=== PATIENT | female | born 1990 | race Caucasian/White ===

== ENCOUNTER 2018-06-18 16:00 | Inpatient (IN) ==
[2018-06-18] MEDS ORDERED: Famotidine 20 MG/2 ML VIAL IVP PRN (16:33)
[2018-06-18] MEDS ORDERED: Ondansetron 4 MG/2 ML VIAL IVP PRN (16:33)
[2018-06-18] MEDS ORDERED: *HR* Nalbuphine 10 MG/ML AMPUL IVP PRN (16:33)
[2018-06-18] MEDS ORDERED: Naloxone 0.4 MG/ML INJ IVP PRN (16:33)
[2018-06-18] MEDS ORDERED: miSOPROStol 25 MCG TABLET PO ONE (16:35)
[2018-06-18] MEDS ORDERED: Ringers Solution, Lactated 1,000 ML IVC SCH (16:45)
[2018-06-18] MEDS ORDERED: EPHEDrine 50 MG/ML VIAL IVP PRN (17:22)
[2018-06-18] MEDS ORDERED: Epidural Premix (fent/bupiv) 110 ML EP SCH (17:30)
[2018-06-18 17:45] LABS: Basophils % 0.2 %; Eosinophils % 0.1 %; Hematocrit 38.2 % (35.3-44.9); Hemoglobin 12.6 g/dL (11.5-15.4); Immature Granulocytes % 0.4 % (0-4); Lymphocytes # 2.1 K/mcL (0.6-4.6); Lymphocytes % 25.7 %; Mean Corpuscular Hemoglobin 30.2 pg (28.0-33.3); Mean Corpuscular Volume 91.6 fL (83.0-100.0); Mean Platelet Volume 10.2 fL (9.4-12.4); Monocytes # 0.7 K/mcL (0.0-1.3); Monocytes % 8.3 %; Neutrophils # 5.2 K/mcL (1.6-8.9); Platelet Count 179 K/mcL (140-400); Red Blood Count 4.17 M/mcL (3.82-4.97); Red Cell Distribution Width 13.1 % (11.5-14.5); Segmented Neutrophils % 65.3 %
[2018-06-18 17:59] LABS: Amphetamine Screen,Urine Negative ng/mL (Cutoff=1000); Barbiturate Screen,Urine Negative ng/mL (Cutoff=200); Benzodiazepines Screen,Urine Negative ng/mL (Cutoff=200); Cannabinoid Screen,Urine Negative ng/mL (Cutoff = 50); Cocaine Screen,Urine Negative ng/mL (Cutoff= 300); Opiate Screen,Urine Negative ng/mL (Cutoff=300); Phencyclidine Screen,Urine Negative ng/mL (Cutoff=25)
--- NOTE | 2018-06-18 18:49 | OB/GYN History & Physical ---
Date of Encounter: 06/18/18 Time of Encounter: 18:41 Assessment and Plan (1) 39 weeks gestation of Current visit: Yes Status: Acute Patient admitted for IOL PO Cytotec 50mcg x1 Dr. Cortez updated on patient's POC History of Present Illness Chief complaint: Scheduled IOL HPI: Ms. Bhatti is a 28 year old female at 40w6d with EDC of 06/12/2018 presents to labor and delivery for IOL for gestational age greater than 39 weeks. IOL was discussed with Dr. Lucero who agrees with POC. Sousa score 9. Patient reports good movement denies contractions LOF or VB. Patient receives OB care with [facility]. Patient's care has been uncomplicated. Ultrasound on 06/15/18 EFW 7#1oz and GREGOR 11.9cm. Blood type: A+ Rubella: Immune Hep B: drawn on admission and pending Varicella: Positive GBS: Negative Past Med Surg Social Fam HX - Past Medical History Source: patient Medical history: no medical history Psychiatric history: no psych history - Past Surgical History Surgical History: no surgical history - Social History Smoking Status: Former smoker Alcohol use: none Drug use: none Current living situation: Home - Independent Activity Level: Independent ambulation Recent Out of Country Travel Within the Last 8 Weeks: No Exposure or Possible Exposure to Illness During Travel: No - Family History Mother Name: Gennaroantha Age: 47 Hx Family Medical Disorders: No Obstetrical History - Pregnancies : 2 Para: 1 Term: 1 : 0 Ab's: 0 Livin Medications and Allergies Vits96/Iron Fum/Folic [ Tablet] 1 each PO 06/18/18 [History] Allergy/AdvReac Type Severity Reaction Status Date / Time No Known Allergies Allergy Verified 06/18/18 18:02 Review of System OB - Constitutional Constitutional ROS IM: no chills, no fever(s), no headache(s), no weakness - Cardiovascular Cardiovascular: no chest pain, no leg edema, no lightheadedness, no palpitations, no syncope - Respiratory Respiratory: no cough, no dyspnea - Gastrointestinal Gastrointestinal: no abdominal pain, no cramping, no diarrhea, no heartburn, no nausea, no vomiting - Genitourinary Genitourinary: no abnormal vaginal bleeding, no difficulty urinating, no difficulty voiding, no dysuria, no flank pain, no urinary frequency, no urinary hesitancy, no urinary urgency, no vaginal discharge, no vaginal odor, no vaginal pruritis Exam - Constitutional Constitutional: well developed, well nourished, no acute distress, average body habitus - HEENT HEENT: Normocephaly, Mucus Membranes Moist - Neck Neck exam: full ROM, supple - Lungs Respiratory exam: CTAB - Cardiovascular Cardiovascular exam: RRR, +S1, +S2 - Abdomen Abdomen: Present: bowel sounds normal, gravid, non tender - Extremities Extremities exam: full ROM, normal capillary refill, normal inspection Deep Tendon Reflex Grade: 2+ Normal - Cervix Dilation: 1 Effacement: 70 Station: -1 - Uterus Uterus exam: Present: normal size, normal contour - Anus/Rectum Anus/Rectum: Present: normal perianal skin - Comments Comments: FHR 125 bpm moderate variability +15x15 accels no decels noted. CAt. 1 tracing. No contractions noted. Results Result Diagrams: 06/18/18 17:27 All other labs normal. - VTE Reasons for not Prescribing Prophylaxis: Treatment not Indicated - Low risk for VTE
--- NOTE | 2018-06-18 18:54 | Anesthesia Evaluation PreOp ---
Date of Encounter: 06/18/18 Time of Encounter: 18:51 - Past History Planned Operation: vaginal del, induction 39wks Cardiac History: Denies any Significant Hx Pulmonary History: Denies Any Significant HX CLEANER TOUCH UP WORKER History: Denies Any Significant HX Other Medical History: Denies Any Significant HX Anesthesia History: No Prior Anesthetic Complications, Past Anesthesia (no family hx.) Alcohol Use: none Drug use: none Medications and Allergies Vits96/Iron Fum/Folic [ Tablet] 1 each PO 06/18/18 [History] Allergy/AdvReac Type Severity Reaction Status Date / Time No Known Allergies Allergy Verified 06/18/18 18:02 Anesthesia Results - Labs 06/18/18 17:27 Anesthesia Exam - HEENT Pupil (Motor): Pupils equal Mallampati: II Teeth: Normal Oral Opening: Greater than 3 - CLEANER TOUCH UP WORKER LOC: Oriented CLEANER TOUCH UP WORKER Motor: Normal RUE, Normal LUE, Normal RLE, Normal LLE, Normal Face CLEANER TOUCH UP WORKER Sensory: Normal: RUE, LUE, RLE, LLE, Face - Cardiac Rhythm: Regular Murmur: None - Pulmonary Breath Sounds: bilateral Clear Respiratory Effort: Symmetrical Anesthesia Assess/Plan ASA Score: 2 Level of consciousness: Cooperative, Oriented Anesthetic Plan: General, Spinal, Epidural Monitoring Plan: Standard Monitors Recovery Plan: PACU
--- NOTE | 2018-06-18 21:19 | OB Labor Progress Note ---
Date of Encounter: 06/18/18 Time of Encounter: 21:16 Labor Progress Note - Subjective Subjective: Patient resting in bed. Discussed POC with patient. Patietn denies any questions or concerns. - Cervix Cervix: 1/70/-1 - Heart Tones Heart Tones: 135 bpm moderate variability +15x15 accels no decels noted. Cat. 1 tracing - [place]: irregular - Interventions Interventions: SVE, Dailey catheter placed without difficulty. 40cc sterile water placed in dailey catheter. Patient tolerated well. - Plan Plan: Continue labor management Dr. Cortez updated on POC
[2018-06-18] MEDS ORDERED: Oxytocin 20 units/ LR 1000 mL 20 UNIT/1,000 ML BAG IVC SCH (22:45)
--- NOTE | 2018-06-19 00:13 | OB Labor Progress Note ---
Date of Encounter: 06/19/18 Time of Encounter: 00:10 Labor Progress Note - Subjective Subjective: Patient reports contractions are getting stronger. Discussed POC with patient. Patient denies any questions or concerns. - Cervix Cervix: 4.5/70/-1 - Heart Tones Heart Tones: 125 bpm moderate variability +15x15 accels no decels noted. Cat. 1 tracing - [place]: 4-5 min apart - Interventions Interventions: SVE, AROM moderate amount of light meconium noted. Patient tolerated well. Nursery and Dr. Cortez updated on patient's status. - Plan Plan: Continue labor management Patient may have nubain or epidural if desires anticipate
[2018-06-19] MEDS ORDERED: Lidocaine -MPF 2% 5 ML VIAL ONE (00:19)
--- NOTE | 2018-06-19 00:51 | Anesthesia Procedures ---
Date of Encounter: 06/19/18 Time of Encounter: 00:21
--- NOTE | 2018-06-19 00:53 | Anesthesia Procedures ---
Addendum entered and electronically signed by Pam Angel CRNA 06/19/18 18:34: Infant Delivery Date: 06/19/18 Infant Delivery Time: 14:15 Original Note: Date of Encounter: 06/19/18 Time of Encounter: 00:21 Procedures: Anesthesia - Epidural/Spinal Patient ID/Chart reviewed: Yes Patient examined: Yes OB Eval: Gestational age: term OB Eval: : 2 OB Eval: Hx Para: 1 OB Eval: Contractions: Non-stressed pattern Consent Obtained: Yes Supplemental Oxygen: None/Room Air Site Prep: Aseptic Technique, Sterile prep and drape, 0.5% Chlorhexidine/Alcohol Patient position: upright Local Anesthetic: Lidocaine 1% Amount of Local Anesthetic used: 2 Touhy Needle Gauge: 18 Touhy Needle Depth (cm): 5 Catheter Depth at Skin (cm): 10 Test Dose (1.5% Lido + Epi): Volume given (mls): 3 Test Dose Result: Negative Loading Dose: Other: 10ml from solution Loading Dose Administered: Thru Catheter Infusion Med: 0.125% Bupivacaine w/ 2 mcg/ml Fentanyl Infusion Rate (mls/hr): [address]: Tegaderm, Tape Interspace Used: L3-L4 Loss of Resistance (ELAYNE): Yes (saline) Blood: No CSF: No Paresthesia: No Procedure: vss though out procedure, FHR stable per RN's
--- NOTE | 2018-06-19 02:06 | OB Labor Progress Note ---
Date of Encounter: 06/19/18 Time of Encounter: 02:04 Labor Progress Note - Subjective Subjective: Patient comfortable with epidural in place. Patient denies any needs at this time. - Cervix Cervix: 5/80/-1 - Heart Tones Heart Tones: 115 bpm moderate variability +15x15 accels no decels noted. Cat. 1 tracing - [place]: 3-4 min apart - Interventions Interventions: SVE, IUPC placed without difficulty. Patient tolerated well. - Plan Plan: Continue labor management anticipate
[2018-06-19] MEDS ORDERED: 0.9 % Sodium Chloride 1,000 ML ONE (06:16)
--- NOTE | 2018-06-19 06:47 | OB Labor Progress Note ---
Date of Encounter: 06/19/18 Time of Encounter: 06:40 Labor Progress Note - Subjective Subjective: Patient comfortable with epidural in place. - Cervix Cervix: 5.5/90/-1 - Heart Tones Heart Tones: 115 bpm moderate variability +15x15 accels early decels noted. - [place]: 3-4 min apart - Interventions Interventions: Updated on interventions per RN. This CNM was at another patient's bedside at this time. Amnio-infusion infusing at this time. - Plan Plan: Continue labor management. Dr. Cortez aware of EFM tracing and interventions.
--- NOTE | 2018-06-19 10:29 | OB Labor Progress Note ---
Date of Encounter: 06/19/18 Time of Encounter: 10:24 Labor Progress Note - Subjective Subjective: Patient comfortable with epidural - feeling more pressure and requesting redose on epidural medication - Cervix Cervix: 8/90/-1 - Heart Tones Heart Tones: Baseline 120 Moderate variability Early decelerations Accelerations present 15x15 FHR Category I - [place]: Contractions every 3+ minutes - Interventions Interventions: SVE Peanut ball right Anesthesia notified of need for bolus - Plan Plan: Continue active management Frequent changes with peanut ball Re-evaluate in 2 hours Anticipate
[2018-06-19] MEDS ORDERED: *HR* FentaNYL (PF) 100 MCG/2 ML VIAL ONE (11:50)
[2018-06-19] MEDS ORDERED: Bupivacaine-MPF 0.25% 10 ML VIAL ONE (11:51)
--- NOTE | 2018-06-19 13:45 | Anesthesia Progress Note ---
Date of Encounter: 06/19/18 Time of Encounter: 13:33 Anesthesia Note - Note Note: 06/19/18 13:43 called to LDR 9 for c/o return of pain with contractions 05/13. epidural working, no migration. Dosed with 100mcg fentanyl and 8ml 0.25% bupivacaine in 3 divided doses with VSS and fhts stable throughout.
--- NOTE | 2018-06-19 14:43 | OB/GYN Procedure Note ---
Delivery - Delivery Date: 06/19/18 Provider: Merly Solano Intrapartum events: meconium Delivery induction: misoprostol Delivery augmentation: rupture of membranes, pitocin Delivery monitor: external FHT, external uterine, internal uterine Anesthesia: epidural Quantitated Blood Loss: 250 - (s) Infant A Infant Delivery Date: 06/19/18 Infant Delivery Time: 14:15 Presentation: vertex Position: LURDES Route of delivery: Gender: Female Viability: Viable Pounds: 6 Ounces: 12 Weight Gram: 3.065 kg at 1 minute: 4 at 5 mins: 6 at 10 mins: 7 Shoulder Dystocia: not encountered Specimens collected: cord blood Placenta: spontaneous - Repair Episiotomy: none Laceration Description: Perineal - 1st Degree - Complications Delivery complications: none Delivery comments: This is a 28 year old G2 now P2 who was admitted for induction of labor secondary to postdates. She progressed with misoprostol induction and AROM with Pitocin augmentation to the second stage of labor. She pushed for about 20 minutes. She delivered a viable female infant, "Gill", LURDES over a first-degree laceration. A nuchal cord was not identified. A shoulder dystocia was not encountered. The infant was placed on the maternal abdomen and needed vigorous stimulation. Nursery was called to bedside along with RT. The cord was double clamped by logistics lead and cut by FOB. scores were 4 at 1 minute and 6 at 5 minutes and 7 at 10 minutes. The weighed 6 lbs. 12 oz. (3065 g). The placented delivered ([place]) spontaneously, intact with a 3-vessel cord. Inspection revealed first-degree laceration. The laceration was repaired under epidural anesthesia with a 3-0 Monocryl suture. The uterus was firm with no active bleeding. EBL was 250 mL. Placenta and umbilical artery blood gases were not sent. There were no complications during the procedure. Mom is recovering in the room and baby was taken to transition in the nursery. - Disposition Mom disposition: stable in LDR disposition: taken to nursery
[2018-06-19] MEDS ORDERED: Oxytocin 20 units/ LR 1000 mL 20 UNIT/1,000 ML BAG IVC SCH (16:54)
[2018-06-19] MEDS ORDERED: Benzocaine/Menthol 56 GM AEROSOL SPRAY TP PRN (16:54)
[2018-06-19] MEDS ORDERED: Acetaminophen 325 MG TABLET PO PRN (16:54)
[2018-06-19] MEDS ORDERED: Ondansetron 4 MG/2 ML VIAL IVP PRN (17:07)
[2018-06-19] MEDS: Ibuprofen 600 MG TABLET PO PRN (22:01)
[2018-06-20] MEDS: Ibuprofen 600 MG TABLET PO PRN (04:26)
--- NOTE | 2018-06-20 08:24 | Discharge Summary ---
Date of Encounter: 06/20/18 Time of Encounter: 08:21 - Discharge Diagnosis (1) Vaginal delivery Priority: Primary Status: Acute Comments: S/P Vaginal delivery day 1 Pain well controlled Lochia light without clots VSS Tolerating regular diet Passing flatus and urinating without difficulty Pumping for infant; [facility] - Discharge Medications Prescriptions: Ibuprofen [Motrin] 600 mg PO Q6HR PRN #30 tablet PRN Reason: Cramping Breast Pump [BREAST PUMP] 1 each .ROUTE AD 99 Days #1 each Docusate [Colace] 100 mg PO BID #30 capsule Home Medications: Vits96/Iron Fum/Folic [ Tablet] 1 each PO 06/18/18 [History] Acetaminophen [Tylenol] 650 mg PO Q6HR PRN tablet 06/20/18 [Rx] Benzocaine/Menthol [place]hler [Dermoplast Deshler] 1 appl TP QID PRN aerosol 06/20/18 [Rx] Breast Pump [BREAST PUMP] 1 each .ROUTE AD 99 Days #1 each 06/20/18 [Rx] Docusate [Colace] 100 mg PO BID #30 capsule 06/20/18 [Rx] Ibuprofen [Motrin] 600 mg PO Q6HR PRN #30 tablet 06/20/18 [Rx] Allergies/Adverse Reactions: Allergy/AdvReac Type Severity Reaction Status Date / Time No Known Allergies Allergy Verified 06/18/18 18:02 Data Procedures and tests throughout hospitalization: Laboratory Tests 06/18/18 06/18/18 06/18/18 17:27 17:27 17:27 WBC 8.0 RBC 4.17 Hgb 12.6 Hct 38.2 MCV 91.6 MCH 30.2 MCHC 33.0 RDW 13.1 Plt Count 179 MPV 10.2 Immature Gran % 0.4 Seg Neutrophils % 65.3 Lymphocytes % 25.7 Monocytes % 8.3 Eosinophils % 0.1 Basophils % 0.2 Neutrophils # 5.2 Lymphocytes # 2.1 Monocytes # 0.7 Eosinophils # 0.0 Basophils # 0.0 Urine Opiates Screen Negative Ur Barbiturates Screen Negative Ur Phencyclidine Scrn Negative Ur Amphetamines Screen Negative U Benzodiazepines Scrn Negative Urine Cocaine Screen Negative U Marijuana (THC) Screen Negative Ur Drug Screen Interp See Below Hep Bs Antigen Nonreactive Date of admission: 06/18/18 16:12 Primary care physician: Elisabeth Herron CNP Consults: 06/19/18 16:54 Consult to Chalk Machine Operator [CONS] Routine Comment: Vaginal delivery, consult needed Discharging clinician: Merly Farah Anticipated date of discharge: 06/20/18 - Patient Status Disposition: Home, Self-Care Condition: Good Functional capacity at discharge: independent ambulation Overall status at discharge: patient is progressing back to baseline - Discharge Instructions Follow Up With: Elisabeth Herron CNP [Primary Care Provider] - Merly Solano [Advanced Practice Nurse] - - Diet and Activity Activity: increase activity as tolerated Diet: regular diet Hospital Course Reason for admission: induction of labor, IUP at term Delivery: Episiotomy: none Laceration: 1st degree Other procedures: none complications: none Discharge diagnosis: IUP at term delivered [place] baby: female Time Attestation: Total time spent providing and/or coordinating discharge services: Time Spent: Less than 30 minutes Exam - Constitutional Vitals: Temp Pulse Resp BP Pulse Ox 97.7 F 71 16 100/64 100 06/20/18 04:22 06/20/18 04:22 06/20/18 04:22 06/20/18 04:22 06/20/18 04:22 General appearance IM: cooperative, A&O X 3, pleasant - Respiratory Respiratory exam: Present: CTAB - Cardiovascular Cardiovascular exam IM: Present: RRR, +S1, +S2 - GI/Abdominal GI/Abdominal exam IM: normal bowel sounds, soft - Rectal Rectal exam: deferred - Uterine Tone: Firm Uterus Position: At Umbilicus, Midline - Extremities Exam Extremities exam IM: Present: normal capillary refill, normal inspection, radial pulses palpable and symmetrical - Neurological Exam Neurological exam: alert, oriented X3
[2018-06-20 08:35] VITALS: BP 94/60
[2018-06-20] MEDS ORDERED: Prenatal Vit/FA 1 EACH TABLET PO SCH (09:00)
== END 2018-06-20 08:52 | disposition home or self-care (01) | DRG 560 ==
LOC: 1NENULAB 16:12 → 1NENUOBS 06-19 16:42
PROVIDERS: ADMIT Advanced Practice Midwife; ATTEND Advanced Practice Midwife

== ENCOUNTER 2021-06-07 06:27 | Inpatient (IN) ==
[~2021-06-07 06:27] MED LIST: Famotidine 20 MG/2 ML VIAL IVP PRN; Lidocaine 1% 20 ML MDV INFILT PRN; Metoclopramide 10 MG/2 ML VIAL IVP PRN; Naloxone 0.4 MG/ML INJ IVP PRN; Ringers Solution, Lactated 1,000 ML IVC SCH
[2021-06-07 07:01] LABS: Basophils % 0.3 %; Eosinophils % 0.3 %; Hematocrit 37.2 % (35.3-44.9); Hemoglobin 11.8 g/dL (11.5-15.4); Immature Granulocytes % 0.3 % (0-4); Lymphocytes # 2.6 K/mcL (0.6-4.6); Mean Corpuscular HGB Conc 31.7 g/dL (31.6-35.5); Mean Corpuscular Hemoglobin 28.1 pg (28.0-33.3); Mean Corpuscular Volume 88.6 fL (83.0-100.0); Mean Platelet Volume 10.2 fL (9.4-12.4); Monocytes # 0.8 K/mcL (0.0-1.3); Monocytes % 10.4 %; Neutrophils # 4.5 K/mcL (1.6-8.9); Platelet Count 169 K/mcL (140-400); Red Cell Distribution Width 14.6 % (11.5-14.5); Segmented Neutrophils % 56.7 %
[2021-06-07 07:41] LABS: Influenza A PCR Negative (Negative); Influenza B PCR Negative (Negative); Resp. Syncytial Virus PCR Negative (Negative)
[2021-06-07] MEDS ORDERED: Naloxone 0.4 MG/ML INJ IVP PRN (07:48)
[2021-06-07] MEDS ORDERED: *HR* FentaNYL (PF) 100 MCG/2 ML VIAL EP ONE (07:48)
[2021-06-07] MEDS ORDERED: Ropivacaine/PF 0.2% 20 ML VIAL EP ONE (07:48)
[2021-06-07] MEDS ORDERED: Ondansetron 4 MG/2 ML VIAL IVP PRN (07:48)
[2021-06-07] MEDS ORDERED: EPHEDrine 50 MG/ML VIAL IVP PRN (07:48)
[2021-06-07] MEDS ORDERED: Epidural Premix (fent/bupiv) 110 ML EP ONE (07:51)
[2021-06-07 07:55] LABS: SARS-CoV-2 by PCR (In House) Negative (Negative)
[2021-06-07] MEDS ORDERED: Epidural Premix (fent/bupiv) 110 ML EP SCH (08:00)
[2021-06-07 08:37] LABS: Amphetamine Screen,Urine Negative ng/mL (Cutoff=1000); Barbiturate Screen,Urine Negative ng/mL (Cutoff=200); Benzodiazepines Screen,Urine Negative ng/mL (Cutoff=200); Cannabinoid Screen,Urine Negative ng/mL (Cutoff = 50); Cocaine Screen,Urine Negative ng/mL (Cutoff= 300); Opiate Screen,Urine Negative ng/mL (Cutoff=300); Phencyclidine Screen,Urine Negative ng/mL (Cutoff=25)
[2021-06-07] MEDS ORDERED: *HR* Phenylephrine 10 MG/ML VIAL ONE (08:40)
[2021-06-07] MEDS ORDERED: Oxytocin 20 units/ LR 1000 mL 20 UNIT/1,000 ML BAG IVC SCH ×2 (08:45→14:56)
[2021-06-07] MEDS ORDERED: Oxytocin 20 units/ LR 1000 mL 20 UNIT/1,000 ML BAG IVC ONE (14:56)
[2021-06-07] MEDS ORDERED: Lanolin 7 G OINT...G. TP PRN (14:56)
[2021-06-07] MEDS ORDERED: Ondansetron ODT 4 MG TAB.RAPDIS SL PRN (14:56)
[2021-06-07] MEDS ORDERED: Benzocaine/Menthol 56 GM AEROSOL SPRAY TP PRN (14:56)
[2021-06-07] MEDS: Acetaminophen 325 MG TABLET PO SCH (17:14)
[2021-06-07] MEDS: Ibuprofen 600 MG TABLET PO SCH (21:50)
[2021-06-08] MEDS: Acetaminophen 325 MG TABLET PO SCH ×2 (01:36→07:52)
[2021-06-08] MEDS: Ibuprofen 600 MG TABLET PO SCH ×2 (05:14→07:52)
[2021-06-08 05:19] VITALS: O2SAT 100
[2021-06-08 07:50] VITALS: BP 96/51; PULSE 50; TEMP 97.9
[2021-06-08] MEDS ORDERED: Prenatal Vit/FA 1 EACH TABLET PO SCH (09:00)
== END 2021-06-08 14:30 | disposition home or self-care (01) | DRG 560 ==
LOC: 1NENULAB → 1NENUOBS 16:26
PROVIDERS: ADMIT Registered Nurse; ATTEND Registered Nurse